=== PATIENT | male | born 1975 | race Caucasian/White ===

== ENCOUNTER 2025-09-15 09:54 | Emergency (ER) | payer OTHER, SELFPAY ==
[2025-09-15 09:59] VITALS: BP 146/72
[2025-09-15 10:52] LABS: Hematocrit 42.1 % (39.0-52.0); Hemoglobin 14.2 g/dL (13.0-18.0); Mean Corp Hgb Conc. 33.7 g/dL (33.0-37.0); Mean Corpuscular Volume 90.7 fL (80.0-94.0); Nucleated Red Blood Cells % 0 % (-); Platelet Count 175 10^3/uL (130-400); Red Cell Dist. Width 12.0 % (11.5-14.5)
[2025-09-15 11:11] LABS: ALT (SGPT) 58 U/L (0-50); AST (SGOT) 40 U/L (17-59); Albumin 4.3 g/dl (3.5-5.0); Alkaline Phosphatase 34 U/L (38-126); Blood Urea Nitrogen 14 mg/dl (9-20); Calcium 9.4 mg/dl (8.4-10.2); Carbon Dioxide 28 mmol/L (22-30); Chloride 101 mmol/L (98-107); Glucose 163 mg/dl (70-99); Potassium 4.0 mmol/L (3.5-5.1); Sodium 134 mmol/L (135-145); Total Protein 6.8 g/dl (6.3-8.2); eGFR > 60.00
[2025-09-15 11:14] LABS: COVID-19 Antigen Negative (Negative)
[2025-09-15 11:34] VITALS: BMI 24.2
[2025-09-15] MEDS: TYLENOL 1000 MG PO (13:08)
[2025-09-15] MEDS: NSS 1000 IV (13:09)
--- NOTE | 2025-09-15 13:10 | PTCARENOTE ---
Pt sitting on side of bed getting labs drawn by this RN. P states he feels lightheaded and feels like he's going to pass out. Pt had a near syncopal episode. RN laid pt back on stretcher. temp 100.4. Tylenol given. IV and NSS Bolus started.
Aman MAYO made aware.
[2025-09-15 14:23] LABS: INR 3.87; PT 38.3 Sec (11.4-14.6)
[2025-09-15 14:56] VITALS: BP 114/57
--- NOTE | 2025-09-15 15:06 | ED.GENMED ---
History of Present Illness
General
Chief Complaint: Cold/Flu/URI Symptoms
Time Seen by Provider: 09/15/25 10:59
History of Present Illness
History of Present Illness:
50-year-old male with history of aortic valve mechanical replacement on Coumadin presents to the emergency department for evaluation of cough, sore throat, and malaise for the past 7 days with new worsening of symptoms over the past 24 hours.
Reports multiple sick contacts at home. Fever and myalgias developed overnight last night. Cough is dry. Denies chest pain or shortness of breath
Past History
Past History
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
ED Past Surgical History: Other (Agree with PS)
Social History
Tobacco: Non-smoker
Alcohol: None
Drug: None
Personal:
Living: with family
Employment: Employed
Review of Systems
Review of Systems
Allergies reviewed?: Yes
All Other Systems: ROS reviewed and negative except as documented in HPI and ROS
Phy Exam
Physical Exam
Physical Exam:
GEN: Well appearing, NAD, WDWN
HEENT: Oral mucosa moist, no scleral icterus, TMs clear bilaterally with no erythema, or mucosa without exudates or erythema
Cardiac: Regular rate and rhythm, no murmur, audible systolic click compatible with known mechanical valve
Lung: No respiratory distress, no tachypnea, lungs clear to auscultation
MSK: No gross deformity or injuries
Skin: Good color, no pallor or jaundice, no rashes
Neuro: AO x3, moves all extremities freely
Psych: Calm, cooperative
Sepsis
Sepsis Screening
Sepsis Assessment: Sepsis Ruled Out
Sepsis Screen
Sepsis Screen: Sepsis Ruled Out
Date: 09/15/25
Time: 15:17
Course
Orders/Labs/Results
Orders:
Orders
12/20/25 10:02
Electrocardiogram (*1) Urgent
Reason for Study: Vertigo / Dizzy
EKG- Treatment ONCE
09/15/25 10:25
COVID-19 Antigen Urgent
Source: Nasal Swab
Complete Blood Count/With Diff Urgent
Comprehensive Metabolic Panel Urgent
Influenza A+B Rapid Molecular Urgent
JYOTHI Source: Nasal Swab
Specimen Description:
09/15/25 11:34
CXR2 [CR Chest - 2 Views ] Urgent
Comment:
Reason For Exam: cough
09/15/25 12:58
Acetaminophen [Tylenol] 1,000 mg .ROUTE .STK-MED ONE
09/15/25 13:08
Acetaminophen [Tylenol] 1,000 mg PO NOW STA
09/15/25 13:09
0.9% Sodium Chloride 1000 ml [Nss] 1,000 ml IV BOLUS
0.9% Sodium Chloride 1000 ml [Nss] 1,000 ml IV BOLUS
Doxycycline [Vibramycin] 100 mg PO NOW STA
09/15/25 13:59
Prothrombin Time Urgent
Abnormal Lab Results
09/15/2525
10:25 13:59
RBC 4.64 L 10^6/uL
(4.70-6.10)
Absolute Neuts (auto) 9.1 H 10^3/uL
(1.4-6.5)
Absolute Lymphs (auto) 0.3 L 10^3/uL
(1.2-3.4)
Neutrophils % 90.1 H %
(42.2-75.2)
Lymphocytes % 3.1 L %
(20.5-51.1)
PT 38.3 H Sec
(11.4-14.6)
Sodium 134 L mmol/L
(135-145)
Glucose 163 H mg/dl
(70-99)
ALT 58 H U/L
(0-50)
Alkaline Phosphatase 34 L U/L
(38-126)
09/15/25 10:25
09/15/25 10:25
Vital Signs
Initial and Last Documented VS:
Initial Vital Signs
Temp Pulse Resp BP Pulse Ox
99 F 109 16 146/72 95
09/15/25 09:59 09/15/25 09:59 09/15/25 09:59 09/15/25 09:59 09/15/25 09:59
Last Documented Vital Signs
Temp Pulse Resp BP Pulse Ox
99.5 F 96 17 114/57 95
09/15/25 14:56 09/15/25 14:56 09/15/25 14:56 09/15/25 14:56 09/15/25 15:08
MDM/Problems Addressed
MDM/Problems Addressed:
Given secondary worsening after 1 week of viral symptoms with associated developing early pneumonia. Patient's INR is supratherapeutic thus recommend deferring dosage adjustment over the next 24 hours with INR follow-up in 48 hours. Started on
doxycycline
Comment
Comment:
EKG independently interpreted by me shows normal sinus rhythm at a rate of [address] changes concerning for ischemia
*Pulse Oximetry
SaO2: 95
Oxygen Mode of Delivery: Room air
Patient hypoxic: no
*Critical Care Note
Total Time (30-74mins, 75-104mins- exclusive of procedures): Not Applicable
ED Attending Note
-
Portions of this chart may have been created with voice recognition software.� Occasional wrong word or��sound alike� substitutions may have occurred due to the inherent limitations of voice recognition software.
Discharge Plan
Departure
Patient Disposition: Home (Routine Discharge)
Date of Disposition: 09/15/25
Time of Disposition: 15:10
Patient with high blood pressure during this ER visit?: No
Discharge Problem:
Pneumonia
Instructions: Pneumonia in adults (DC)
Prescriptions:
New
doxycycline hyclate 100 mg capsule
100 mg PO BID Qty: 9 0RF
No Action
aspirin 325 MG tablet
325 mg PO HS
warfarin [Jantoven] 10 MG tablet
7.5 - 10 mg PO HS
Patient Comments:
depending upon bloodwork-had 10mg on 09/10/10
Tylenol
2 tab PO PRN PRN (Reason: achy)
ondansetron 4 MG tablet,disintegrating
4 mg PO TIDPRN PRN (Reason: NAUSEA) Qty: 7 0RF
cephalexin 500 MG capsule
500 mg PO QID Qty: 27 0RF
Referrals:
UNKNOWN - PT DOES,NOT KNOW [Family Provider]
Activity Restrictions/Additional Instructions:
Warfarin dosing:
Interventions
Interventions:
*General Assessment Last Done: 09/15/25 11:34
*Neglect/Abuse Screening Last Done: 09/15/25 10:02
*ED COVID-19 Vaccine History Last Done: 09/15/25 11:34
*ED Influenza Vaccine History Last Done: 09/15/25 11:34
[facility] Fall Risk Assessment Tool Last Done: 09/15/25 11:34
*Risk Screen - Suicide (C-SSRS) Last Done: 09/15/25 10:02
ED- Pulmonary Assessment Last Done: 09/15/25 11:34
Discharge Date and Time
Print Language: YEMENI
[2025-09-15] MEDS: VIBRAMYCIN 100 MG PO (15:14)
== END 2025-09-15 15:45 | disposition home or self-care (01) ==
LOC: EMR 09:54
PROVIDERS: EMERGENCY PHYSICIAN Emergency Medicine
DX: J18.9 Pneumonia, unspecified organism (principal); Z79.01 Long term (current) use of anticoagulants; Z95.2 Presence of prosthetic heart valve
CPT/HCPCS: 99284; 96360; 71046; 80053; 85025; 85610; 87502; 87811; 93005

== ENCOUNTER → 2025-09-17 10:58 | Outpatient (REF) | payer OTHER, SELFPAY | LOC: HWRAD 10:58 | PROVIDERS: ATTENDING PHYSICIAN Student in an Organized Health Care Education/Training Program | DX: R91.1 Solitary pulmonary nodule (principal) | CPT/HCPCS: 71046 ==

== ENCOUNTER → 2025-09-18 08:13 | Outpatient (REF) | payer OTHER, SELFPAY | LOC: RCS 08:13 | PROVIDERS: ATTENDING PHYSICIAN Student in an Organized Health Care Education/Training Program | DX: Z95.2 Presence of prosthetic heart valve (principal) | CPT/HCPCS: 93306 ==

== ENCOUNTER → 2025-09-24 15:27 | Outpatient (REF) | payer OTHER, SELFPAY | LOC: RAD 15:27 | PROVIDERS: ATTENDING PHYSICIAN Student in an Organized Health Care Education/Training Program | DX: R91.1 Solitary pulmonary nodule (principal) | CPT/HCPCS: 71260; Q9967 ==